=== PATIENT | female | born 1970 | race Caucasian/White ===

== ENCOUNTER 2023-06-30 07:35 | Day surgery (SDC) | payer OTHER ==
[~2023-06-30] VITALS: Ht 160 cm; Wt 68.0 kg
[2023-06-30 08:04] LABS: HCG,QUAL RESULT NEGATIVE (NEGATIVE)
[2023-06-30] MEDS ORDERED: SIMETHICONE 40 MG/0.6 ML ML ONE (08:07)
[2023-06-30] MEDS ORDERED: MEPERIDINE 100 MG INJ. 100 MG/ML VIAL ONE (08:07)
[2023-06-30] MEDS ORDERED: MIDAZOLAM HCL 5 MG/5 ML VIAL ONE (08:07)
[2023-06-30] MEDS ORDERED: BENZOCAINE 20% 0.5mL UD SPRAY MM ONE (08:31)
[2023-06-30 10:07] VITALS: O2SAT 99
[2023-06-30 11:24] VITALS: BP_SYST 117; PULSE 95; RESP 18
== END 2023-06-30 10:02 | disposition home or self-care (01) ==
LOC: SDS 07:35 → SMU 07:36 → SDS 10:02
PROVIDERS: ATTEND Student in an Organized Health Care Education/Training Program
DX: Z12.11 Encounter for screening for malignant neoplasm of colon (principal); K57.30 Diverticulosis of large intestine without perforation or abscess without bleeding; K64.8 Other hemorrhoids; R13.10 Dysphagia, unspecified; K29.50 Unspecified chronic gastritis without bleeding; K21.9 Gastro-esophageal reflux disease without esophagitis; E78.5 Hyperlipidemia, unspecified; Z79.899 Other long term (current) drug therapy
CPT/HCPCS: 45378; 43239; 99152; 84703; 88305; 88312; 88313; 99153; G0378; J2250; J2175